=== PATIENT | female | born 1975 | race Asian ===

== ENCOUNTER 2017-11-29 08:41 | Day surgery (SDC) | payer OTHER ==
[~2017-11-29 08:41] MED LIST: Buffered Lidocaine 0.9% SYRIN* 5 ML/SYR SYRINGE INTRADERM ONE
[2017-11-29 09:17] LABS: ABS Basophils 0 10^3/ul (0-0.2); ABS Eosinophils 0.1 10^3/ul (0-0.6); ABS Lymphocytes 1.7 10^3/ul (1.0-4.8); ABS Monocytes 0.2 10^3/ul (0-0.8); ABS Neutrophils 1.5 10^3/ul (1.5-7.7); ABS Nucleated RBC 0 10^3/ul; Eosinophil % 3.1 % (0-6); Hematocrit 33 % (35-47); Hemoglobin 11.4 g/dl (12.0-16.0); Lymphocyte % 47.7 % (25-47); Mean Corpuscular HGB Conc 34 g/dl (31-36); Mean Corpuscular Hemoglobin 31 pg (27-31); Mean Corpuscular Volume 91 fL (80-97); Mean Platelet Volume 7.3 um3 (7.4-10.4); Nucleated Red Blood Cells % 0.1; Platelet Count 266 10^3/ul (150-450); Red Blood Count 3.67 10^6/ul (4.0-5.4); Red Cell Distribution Width 13 % (10.5-15); White Blood Count 3.6 10^3/ul (3.5-10.8)
[2017-11-29] MEDS ORDERED: Midazolam* 1 MG/ML 2 ML VIAL (2 MG) ONE (09:17)
[2017-11-29] MEDS ORDERED: fentaNYL* 50 MCG/ML 2 ML VIAL (100 MCG VIAL) ONE (09:17)
[2017-11-29] MEDS ORDERED: Propofol* 10 MG/ML 20 ML BTL IV PUSH ONE (09:20)
[2017-11-29] MEDS ORDERED: Ketorolac INJ* 30 MG/ML 1 ML VIAL ONE (10:32)
[2017-11-29] MEDS ORDERED: Naloxone* 0.4 MG/ML 1 ML VIAL IV PRN (10:33)
[2017-11-29] MEDS ORDERED: Acetaminophen TAB* 325 MG PO PRN (10:33)
[2017-11-29] MEDS ORDERED: oxyCODONE TAB* 5 MG TAB PO PRN (10:33)
[2017-11-29] MEDS ORDERED: Ondansetron INJ* 2 MG/ML VIAL IV PRN (10:33)
[2017-11-29] MEDS ORDERED: fentaNYL* 50 MCG/ML 2 ML VIAL (100 MCG VIAL) IV PRN (10:33)
[2017-11-29] MEDS ORDERED: HYDROmorphone INJ* 1 MG/ML CARPUJECT SYRINGE IV PRN (10:33)
[2017-11-29] MEDS ORDERED: oxyCODONE/Acetamin 5/325 MG* TAB PO PRN (10:33)
[2017-11-29 12:16] VITALS: BP 109/66
--- NOTE | 2017-11-30 08:30 | OP ---
OPERATIVE REPORT: DATE OF OPERATION: 11/29/17 DATE OF : 79 SURGEON: Leatha Guzman MD ANESTHESIOLOGIST: Dr. Macdonald. ANESTHESIA: Spinal. PRE-OP DIAGNOSIS: Endometrial polyp. POST-OP DIAGNOSIS: Endometrial polyp. OPERATIVE PROCEDURE: Hysteroscopy, dilation and curettage, and MyoSure polypectomy. ESTIMATED BLOOD LOSS: Minimal. URINE OUTPUT: 300 cc. IV FLUIDS: 550 cc lactated Ringer's. MATERIALS TO LAB: Endometrial curettings and polyp fragments. INDICATIONS: This patient is a 42-year-old 1, para 1, who presented with finding of a likely polyp on ultrasound. She was counseled and consented for polypectomy in the operating room. FINDINGS: Some thickened endometrium and areas that appeared consistent with an endometrial polyp. No other abnormalities were seen. COMPLICATIONS: None. DESCRIPTION OF PROCEDURE: The risks, benefits, and alternatives were described with the patient and informed consent was obtained. The patient was taken to the operating room with IV running where spinal anesthesia was induced and found to be adequate. The patient was prepped and draped in the normal sterile fashion in the high lithotomy position in [facility]. A time-out was performed. The bladder was emptied. A bivalved speculum was placed in the vagina and a single-tooth tenaculum was placed on the anterior cervix. The cervix was then gently dilated using Hegar and Hanks dilators to a size 27. At that time, a MyoSure hysteroscope was advanced through the cervix and into the uterine cavity with saline running. Fluid was managed with an Aquilex fluid management system. The findings were as noted above. A MyoSure Lite device was then prepared and placed through the scope. All of the polypoid fragments were resected using the MyoSure without difficulty. The hysteroscope was then removed. A curettage of the endometrial cavity was performed using a medium Banjo curette with the curettings collected on Telfa. The tenaculum was then removed from the cervix and there was good hemostasis present. The speculum was removed and the patient was returned to the supine position. The patient tolerated the procedure well. Sponge, lap, and needle counts were correct x2. [id number]/[facility] #: [id number] [facility]
== END 2017-11-29 12:35 | disposition home or self-care (01) ==
LOC: OR 08:41
PROVIDERS: ATTEND Obstetrics & Gynecology
DX: N84.0 Polyp of corpus uteri (principal); D64.9 Anemia, unspecified; K21.9 Gastro-esophageal reflux disease without esophagitis
CPT/HCPCS: 36415; 81025; 85025; 88305; J1885; J2250; J2704; J3010